=== PATIENT | female | born 1995 | race Caucasian/White ===

== ENCOUNTER 2017-10-04 13:22 | Emergency (ER) | payer MEDICAID ==
[~2017-10-04] VITALS: Ht 167.6 cm; Wt 83.0 kg
--- NOTE | 2017-10-04 14:20 | NUR ---
PATIENT TRIAGED IN BED #2
[2017-10-04 14:28] VITALS: BP 109/62
--- NOTE | 2017-10-04 14:40 | NUR ---
PT. CAME INTO THE ED DUE TO VAGINAL BLEEDING . PT STATES " I STARTED BLEEDING YESTERDAY AFTER INTERCOURSE. WITH ABD.CRAMPING". 18 WKS. GESTATION. . HAD US 09/30/17 AT [place] PER PATIENT. DENIES HX,DENIES MEDS. DENIES N/V/D. PT. IS AAOX4 . FAMILY MEMBER AT BEDSIDE. E.R MADE AWARE. WILL CONTINUE TO MONITOR.
--- NOTE | 2017-10-04 15:30 | NUR ---
PT. IN BED RESTING W/ FAMILY MEMBER AT BEDSIDE, RR EVEN AND UNLABORED, VSS, WILL CONTINUE TO MONITOR.
[2017-10-04 15:46] LABS: APPEARANCE,URINE CLEAR (CLEAR); BILIRUBIN,URINE NEGATIVE (NEGATIVE); BLOOD, URINE 2+ (NEGATIVE); COLOR,URINE YELLOW (YELLOW); LEUKOCYTE ESTERASE ,URINE NEGATIVE (NEGATIVE); NITRITE, URINE NEGATIVE (NEGATIVE); UGLUCOSE NEGATIVE (NEGATIVE)
[2017-10-04 16:04] LABS: BASOPHILS # (AUTO) 0.1 K/uL (0.00-0.22); BASOPHILS % (AUTO) 0.9 % (0.0-2.0); EOSINOPHILS # (AUTO) 0.1 K/uL (0-0.4); EOSINOPHILS % (AUTO) 1.1 % (0.0-4.0); HEMATOCRIT 35.7 % (36-48); HEMOGLOBIN 11.2 g/dL (12.0-16.0); LYMPHOCYTES # (AUTO) 1.5 K/uL (2.5-16.5); LYMPHOCYTES % (AUTO) 21.4 % (20.5-51.1); MEAN CORPUSCULAR HEMOGLOBIN 22 pg (27-31); MEAN CORPUSCULAR HGB CONC 31 g/dL (33-37); MEAN CORPUSCULAR VOLUME 71.7 fL (80-94); MONOCYTES # (AUTO) 0.5 K/uL (0.8-1.0); MONOCYTES % (AUTO) 7.9 % (1.7-9.3); NEUTROPHILS # (AUTO) 4.7 K/uL (1.8-7.7); NEUTROPHILS % (AUTO) 68.7 % (42.2-75.2); PLATELET COUNT (AUTO) 243 K/uL (140-450); RED BLOOD CELL COUNT(AUTO) 4.98 MIL/uL (4.20-5.40); RED CELL DISTRIBUTION WIDTH 38.5 % (11.6-13.7); WHITE BLOOD COUNT (AUTO) 6.9 K/uL (4.8-10.8)
[2017-10-04 16:21] LABS: RBC,URINE 11-20 (MOD) /HPF (0-5); WBC,URINE 0-5 (RARE) /HPF (0-5)
[2017-10-04 17:15] VITALS: BP 112/76
--- NOTE | 2017-10-04 17:15 | NUR ---
Patient discharged with v/s stable. Written and verbal after care instructions given and explained. Patient verbalized understanding. Ambulatory with steady gait. All questions addressed prior to discharge. Advised to follow up with PMD.
== END 2017-10-04 17:15 | disposition home or self-care (01) ==
LOC: MED 13:22
DX: O20.0 Threatened abortion (principal); Z3A.13 13 weeks gestation of pregnancy
CPT/HCPCS: 36415; 76805; 81001; 81025; 84702; 85025; 86900; 86901; 99285; Q0092

== ENCOUNTER 2019-06-08 11:32 | Emergency (ER) | payer MEDICAID ==
[~2019-06-08] VITALS: Ht 167.6 cm; Wt 85.3 kg
[2019-06-08 11:52] VITALS: BP 121/72
--- NOTE | 2019-06-08 11:57 | NUR ---
ASSISTED PT TO WAIT IN THE LOBBY. URINE SAMPLE OBTAINED.
[2019-06-08] MEDS ORDERED: KETOROLAC 60 MG/2 ML VIAL IM ONE (14:10)
--- NOTE | 2019-06-08 14:20 | NUR ---
C/O SUDDEN ONSET PRESSURE-LIKE UPPER BACK PAIN WHILE WALKING X TODAY. DENIES TRAUMA/INJURY TO THE BACK. DENIES UTI S/S. STATES PAIN IS SHARP 01/16. VS STABLE. PT ALERT AND AWAKE. AMBUALTORY WITH STEADY GAIT. PMH: DENIES MEDS: DENIES
--- NOTE | 2019-06-08 15:18 | NUR ---
5ML APPLIED TO SITE, PRIOR TO PROCEDURE
[2019-06-08 15:22] VITALS: BP 121/72
--- NOTE | 2019-06-08 15:23 | NUR ---
Patient discharged with v/s stable. Written and verbal after care instructions given and explained. Patient alert, oriented and verbalized understanding of instructions. Ambulatory with steady gait. All questions addressed prior to discharge. ID band removed. Patient advised to follow up with PMD. Rx of ROBAXIN, IBUPROFEN given. Patient educated on indication of medication including possible reaction and side effects. Opportunity to ask questions provided and answered.
== END 2019-06-08 15:23 | disposition home or self-care (01) ==
LOC: MED 11:32
DX: M54.6 Pain in thoracic spine (principal)
CPT/HCPCS: 71046; 81002; 81025; 96372; 99283; J1885